=== PATIENT | male | born 1965 | race African-American/Black ===

== ENCOUNTER 2023-12-30 10:32 | Outpatient (CLI) | payer OTHER ==
[2023-12-30 11:51] LABS: #Basophils 0.06 10x3/uL (0.0-0.2); #Eosinphils 0.02 10x3/uL (0.0-0.5); #Monocytes 0.61 10x3/uL (0.0-1.1); #Neutrophils 2.75 10x3/uL (1.5-8.4); %Basophils 1.1 % (0.0-2.0); %Eosinophils 0.4 % (0.0-6.0); %Lymphocytes 36.6 % (18.0-47.0); %Monocytes 11.2 % (0.0-10.0); %Neutrophils 50.5 % (40.0-75.0); Hematocrit 44.7 % (38.8-50.0); Hemoglobin 15.6 g/dL (13.5-17.5); Mean Corpuscular HGB CONC 34.9 g/dL (32.0-36.0); Mean Corpuscular Hemoglobin 32.9 pg (27.0-33.0); Mean Corpuscular Volume 94.3 fl (81.2-95.1); Mean Platelet Volume 10.4 fl (7.4-10.4); Platelet Count 340 10x3/uL (150-450); RBC Distribution Width 12.8 % (11.5-14.5); Red Blood Cell (RBC) Count 4.74 10x6/uL (4.32-5.72); White Blood Cell (WBC) Count 5.4 10x3/uL (3.5-10.5)
[2023-12-30 12:04] LABS: Prothrombin Time 10.6 sec (9.5-12.1)
[2023-12-30 12:24] LABS: Anion Gap 17 mmol/L (10-20); BUN (Urea Nitrogen) 8 mg/dL (8.4-25.7); Calc. Creatinine Clearance 0 mL/min (70-130); Calcium 9.9 mg/dL (7.8-10.44); Carbon Dioxide 21 mmol/L (22-29); Chloride 100 mmol/L (98-107); Estimated GFR 107; Glucose 76 mg/dL (70-105); Sodium 134 mmol/L (136-145)
== END 2023-12-30 10:33 | disposition home or self-care (01) ==
LOC: LABBT 10:32
PROVIDERS: ATTEND Orthopaedic Surgery
DX: Z01.818 Encounter for other preprocedural examination (principal); M16.11 Unilateral primary osteoarthritis, right hip
CPT/HCPCS: 80048; 85025; 85610; 87081; 93005; 93010

== ENCOUNTER 2024-01-04 07:55 | Observation (INO) | payer OTHER ==
[2023-12-30 11:11] VITALS: BMI 19.0
[2024-01-04] MEDS ORDERED: Midazolam HCl 2 mg/2 ml Vial ONE ×2 (10:50→12:11)
[2024-01-04] MEDS ORDERED: fentaNYL 50 mcg/mL 1 mL Vial ONE (10:50)
[2024-01-04] MEDS ORDERED: Lidocaine 1.5% w/Epi 1:200K 30 ML VIAL (Epid Use) ONE (11:10)
[2024-01-04] MEDS ORDERED: Vancomycin 1 GM/200 ML (FROZEN) BAG ONE (11:14)
[2024-01-04] MEDS ORDERED: Tranexamic Acid 1,000 MG/10 ML VIAL ONE (11:14)
[2024-01-04] MEDS ORDERED: Sodium Chloride 0.9% 100 ML ONE ×2 (11:14→11:23)
[2024-01-04] MEDS ORDERED: CEFAZOLIN 2 GM VIAL ONE (11:23)
[2024-01-04] MEDS ORDERED: Promethazine HCl 25 MG SUPP PR PRN (11:30)
[2024-01-04] MEDS ORDERED: Ondansetron PF 4 MG/2 ML Vial IVP PRN ×2 (11:30→16:30)
[2024-01-04] MEDS ORDERED: diphenhydrAMINE 50 MG/ML VIAL IVP PRN (11:30)
[2024-01-04] MEDS ORDERED: HYDROcodone/Acetaminophen 5/325 mg Tablet PO PRN (11:30)
[2024-01-04] MEDS ORDERED: Moisturizing Cream (Eucerin) 113 GM JAR TOP PRN (11:30)
[2024-01-04] MEDS ORDERED: Promethazine HCl 25 MG/ML VIAL IM PRN ×2 (11:30→16:30)
[2024-01-04] MEDS ORDERED: FENTANYL 500 MCG/10 ML VIAL 500 MCG, Bupivacaine 0.75% 10 ML in Sodium Chloride 0.9% 80 ML EPIDURAL SCH (11:30)
[2024-01-04] MEDS ORDERED: Naloxone HCl 0.4 mg/ml Vial IVP PRN (11:30)
[2024-01-04] MEDS ORDERED: Naloxone HCl 0.4 mg/ml Vial IV PRN (11:30)
[2024-01-04] MEDS ORDERED: diphenhydrAMINE 25 MG CAP PO PRN ×2 (11:30→16:30)
[2024-01-04] MEDS ORDERED: traMADol HCl 50 MG TAB PO PRN ×2 (11:30)
[2024-01-04] MEDS ORDERED: Bupivacaine 0.25% 10 ML VIAL EPIDURAL PRN (11:30)
[2024-01-04] MEDS ORDERED: Dexamethasone 20 MG/5 ML VIAL ONE (12:07)
[2024-01-04] MEDS ORDERED: Rocuronium Bromide 10 MG/ML (10ML VIAL) ONE (12:07)
[2024-01-04] MEDS ORDERED: fentaNYL PF 100 MCG/2 ML SYRINGE ONE (12:07)
[2024-01-04] MEDS ORDERED: PROPOFOL 20 ML ONE (12:07)
[2024-01-04] MEDS ORDERED: Lidocaine 1% PF 5 ML VIAL ONE (12:07)
[2024-01-04] MEDS ORDERED: Ondansetron PF 4 MG/2 ML Vial ONE (12:09)
[2024-01-04] MEDS ORDERED: Dexamethasone 4 mg/ml Vial ONE (12:09)
[2024-01-04] MEDS ORDERED: Bupivacaine 0.25% HCL 30 ML VIAL ONE (12:09)
[2024-01-04] MEDS ORDERED: Sevoflurane 250 ML INH ANEST BOTTLE ONE (12:12)
[2024-01-04] MEDS ORDERED: Esmolol 100 MG/10 ML VIAL ONE (12:33)
[2024-01-04] MEDS ORDERED: PHENYLEPHRINE-NS 100 MCG/ML 10 ML SYRINGE ONE (12:48)
[2024-01-04] MEDS ORDERED: SUGAMMADEX SODIUM 200 MG/2 ML VIAL ONE (13:27)
[2024-01-04] MEDS ORDERED: Fentanyl 250 MCG/5 ML VIAL ONE (14:07)
[2024-01-04] MEDS ORDERED: Promethazine HCl 25 MG/ML VIAL ONE (14:12)
[2024-01-04] MEDS ORDERED: Acetaminophen 325 MG TAB PO PRN (16:30)
[2024-01-04] MEDS ORDERED: Zolpidem Tartrate 5 MG TAB PO PRN (16:30)
[2024-01-04] MEDS: Ketorolac Tromethamine 30 MG (1 mL) VIAL IVP SCH (16:59)
[2024-01-04 18:42] LABS: #Basophils Less than 0.03 10x3/uL (0.0-0.2); #Eosinphils Less than 0.03 10x3/uL (0.0-0.7); %Basophils 0.2 % (0.0-1.0); %Lymphocytes 2.7 % (21.0-51.0); %Neutrophils 92.9 % (42.0-75.0); Hematocrit 40.3 % (42.0-52.0); Hemoglobin 13.3 g/dL (14.0-18.0); Mean Corpuscular Hemoglobin 32.8 pg (27.0-31.0); Mean Corpuscular Volume 99.3 fL (78.0-98.0); Mean Platelet Volume 10.2 fL (7.4-10.4); Platelet Count 302 10x3/uL (130-400); RBC Distribution Width 12.8 % (11.5-14.5); Red Blood Cell (RBC) Count 4.06 mill/uL (4.70-6.10)
[2024-01-04] MEDS: Sodium Chloride 0.9% 1,000 ML IV SCH (18:50)
[2024-01-04 18:56] LABS: ALT (SGPT) 23 U/L (8-55); AST (SGOT) 33 U/L (5-34); Albumin 3.4 g/dL (3.5-5.0); Alkaline Phosphatase 63 U/L (40-110); Anion Gap 15 mmol/L (10-20); BUN (Urea Nitrogen) 4 mg/dL (8.4-25.7); Calc. Creatinine Clearance 94 mL/min (70-130); Calcium 8.5 mg/dL (7.8-10.44); Carbon Dioxide 19 mmol/L (22-29); Chloride 106 mmol/L (98-107); Estimated GFR 109; Globulin 2.7 g/dL (2.4-3.5); Glucose 163 mg/dL (70-105); Potassium 3.8 mmol/L (3.5-5.1); Protein, Total 6.1 g/dL (6.0-8.3); Sodium 136 mmol/L (136-145)
[2024-01-04] MEDS: CEFAZOLIN 2 GM in Sodium Chloride 0.9% 100 ML IVPB SCH (22:06)
[2024-01-04] MEDS: Aspirin 81 mg Enteric Coated Tablet PO SCH (22:08)
[2024-01-05] MEDS: diphenhydrAMINE 50 MG/ML VIAL IM PRN (04:57)
[2024-01-05 06:03] LABS: #Basophils Less than 0.03 10x3/uL (0.0-0.2); #Eosinphils Less than 0.03 10x3/uL (0.0-0.7); %Basophils 0.1 % (0.0-1.0); %Lymphocytes 10.4 % (21.0-51.0); %Monocytes 11.2 % (0.0-10.0); %Neutrophils 78.1 % (42.0-75.0); Hematocrit 34.5 % (42.0-52.0); Hemoglobin 11.6 g/dL (14.0-18.0); Mean Corpuscular HGB CONC 33.6 g/dL (32.0-36.0); Mean Platelet Volume 10.4 fL (7.4-10.4); Platelet Count 240 10x3/uL (130-400); RBC Distribution Width 12.5 % (11.5-14.5); Red Blood Cell (RBC) Count 3.52 mill/uL (4.70-6.10)
[2024-01-05 06:27] LABS: Anion Gap 14 mmol/L (10-20); BUN (Urea Nitrogen) 4 mg/dL (8.4-25.7); Calc. Creatinine Clearance 87 mL/min (70-130); Calcium 8.9 mg/dL (7.8-10.44); Carbon Dioxide 25 mmol/L (22-29); Chloride 102 mmol/L (98-107); Estimated GFR 107; Glucose 92 mg/dL (70-105); Potassium 3.8 mmol/L (3.5-5.1); Sodium 137 mmol/L (136-145)
[2024-01-05] MEDS: Multivitamin W/ Minerals 1 TAB PO SCH (08:53)
[2024-01-05] MEDS: Amlodipine 10 MG TAB PO SCH (08:53)
[2024-01-05] MEDS: Senokot S 8.6-50 MG TAB PO SCH (08:53)
[2024-01-05] MEDS: Ferrous Gluconate 324 MG TAB PO SCH (08:53)
[2024-01-05] MEDS: Lisinopril 20 MG TAB PO SCH (08:53)
[2024-01-05] MEDS ORDERED: Zolpidem Tartrate 5 MG TAB PO PRN (09:48)
[2024-01-05] MEDS: HYDROcodone/Acetaminophen 5/325 mg Tablet PO PRN (10:54)
[2024-01-05 16:08] VITALS: BP 100/41; TEMP 98.5
== END 2024-01-05 17:30 | disposition home or self-care (01) ==
LOC: SDC 07:55 → INTOOBSV 16:14 → SURG B 16:14
PROVIDERS: ADMIT Orthopaedic Surgery; ATTEND Orthopaedic Surgery
PROC: 0SR90JZ Replacement of Right Hip Joint with Synthetic Substitute, Open Approach (ICD-10-PCS; principal; 2024-01-05)
PROC: 3E0R3BZ Introduction of Anesthetic Agent into Spinal Canal, Percutaneous Approach (ICD-10-PCS; 2024-01-05)
DX: M87.051 Idiopathic aseptic necrosis of right femur (principal); M16.11 Unilateral primary osteoarthritis, right hip; S72.051A Unspecified fracture of head of right femur, initial encounter for closed fracture; F17.200 Nicotine dependence, unspecified, uncomplicated; X58.XXXA Exposure to other specified factors, initial encounter
CPT/HCPCS: 36415; 72170; 80048; 80053; 84145; 85025; C1713; C1776; J0665; J1100; J1200; J1885; J2001; J2250; J2405; J2550; J2704; J3010; J3370-JW; J3490